=== PATIENT | male | born 1985 | race Caucasian/White ===

== ENCOUNTER 2019-06-05 11:50 | Emergency (ER) | payer MEDICAID ==
[~2019-06-05] VITALS: Ht 180.3 cm; Wt 87.0 kg
[2019-06-05 11:58] VITALS: BP 131/83
[2019-06-05] MEDS ORDERED: LORazepam 1 MG tablet PO ONE (12:40)
[2019-06-05] MEDS ORDERED: SERT100T PO (12:42)
[2019-06-05] MEDS ORDERED: GABA-534 PO (12:42)
== END 2019-06-05 12:50 | disposition home or self-care (01) ==
LOC: ER 11:51
DX: F41.9 Anxiety disorder, unspecified (principal); F32.9 Major depressive disorder, single episode, unspecified; Z88.0 Allergy status to penicillin; Z79.2 Long term (current) use of antibiotics; Z79.899 Other long term (current) drug therapy
CPT/HCPCS: 99283

== ENCOUNTER 2019-07-11 13:15 | Emergency (ER) | payer MEDICAID ==
[~2019-07-11] VITALS: Ht 180.3 cm; Wt 84.1 kg
[~2019-07-11 13:15] MED LIST: GABA-534 PO; SERT100T PO
[2019-07-11 13:31] VITALS: BP 130/77
[2019-07-11] MEDS ORDERED: LORazepam 1 MG tablet PO ONE (15:30)
[2019-07-11] MEDS ORDERED: SERT100T PO (15:35)
[2019-07-11] MEDS ORDERED: GABA-534 PO (15:35)
== END 2019-07-11 15:47 | disposition home or self-care (01) ==
LOC: ER 13:16
DX: F32.9 Major depressive disorder, single episode, unspecified (principal); Z56.0 Unemployment, unspecified; Z88.0 Allergy status to penicillin; Z88.8 Allergy status to other drugs, medicaments and biological substances; Z79.899 Other long term (current) drug therapy
CPT/HCPCS: 99283

== ENCOUNTER 2020-04-29 22:35 | Emergency (ER) | payer MEDICAID ==
[~2020-04-29] VITALS: Ht 180.3 cm; Wt 62.7 kg
--- NOTE | 2020-04-29 22:44 | NUR ---
Called pt for triage. Pt is currently in the restroom "cleaning up."
[2020-04-29 22:46] VITALS: BP 127/96
[2020-04-29] MEDS ORDERED: CEPH250T PO (23:34)
[2020-04-29] MEDS ORDERED: BACDS PO (23:34)
== END 2020-04-29 23:56 | disposition home or self-care (01) ==
LOC: ER 22:37
DX: L02.416 Cutaneous abscess of left lower limb (principal); F32.9 Major depressive disorder, single episode, unspecified; Z56.0 Unemployment, unspecified; Z59.0 Homelessness; Z88.1 Allergy status to other antibiotic agents; Z88.8 Allergy status to other drugs, medicaments and biological substances; Z79.2 Long term (current) use of antibiotics; Z79.899 Other long term (current) drug therapy
CPT/HCPCS: 99283

== ENCOUNTER 2020-06-06 03:17 | Emergency (ER) | payer MEDICAID ==
[~2020-06-06] VITALS: Ht 180.3 cm; Wt 67.4 kg
[2020-06-06] MEDS ORDERED: vancomycin/NS 1 GM ADD-VANTAGE 250 ML IV ONE (03:25)
[2020-06-06] MEDS ORDERED: iohexol 300mg/ml 100ml inj. ONE (03:25)
[2020-06-06] MEDS ORDERED: normal saline 1000ML IV soln IV ONE (03:25)
[2020-06-06] MEDS ORDERED: bacitracin 15gm ointment TP ONE (03:40)
[2020-06-06 03:52] LABS: BASOPHILS # (AUTO) 0.1 X10'3 (0-0.2); BASOPHILS % (AUTO) 0.7 % (0-1); EOSINOPHILS # (AUTO) 0.1 X10'3 (0-0.9); EOSINOPHILS % (AUTO) 0.4 % (0-6); LYMPHOCYTES # (AUTO) 1.8 X10'3 (1.1-4.8); LYMPHOCYTES % (AUTO) 13.9 % (21-51); MEAN CORPUSCULAR HEMOGLOBIN 28.2 PG (27.0-31.0); MEAN CORPUSCULAR HGB CONC 32.5 g/dL (33.0-36.5); MEAN PLATELET VOLUME 8.5 FL (7.4-10.4); MONOCYTES # (AUTO) 1.5 X10'3 (0-0.9); MONOCYTES % (AUTO) 11.5 % (2-12); NEUTROPHILS # (AUTO) 9.4 X10'3 (1.8-7.7); NEUTROPHILS % (AUTO) 73.5 % (42-75); PLATELET COUNT 321 X10'3 (140-440); RED CELL DISTRIBUTION WIDTH 14.1 % (11.5-14.5); WHITE BLOOD COUNT 12.8 X10'3 (4.5-11.0)
[2020-06-06 04:07] LABS: ALANINE AMINOTRANSFERASE 68 U/L (12-78); ALBUMIN 3.7 G/DL (3.4-5.0); ALBUMIN/GLOBULIN RATIO 0.8 (1.1-1.5); ALKALINE PHOSPHATASE 168 IU/L (46-116); ANION GAP 7 (8-16); ASPARTATE AMINO TRANSFERASE 44 U/L (10-37); BILIRUBIN,TOTAL 0.8 MG/DL (0.1-1.0); BLOOD UREA NITROGEN 20 MG/DL (7-18); BUN/CREATININE RATIO 22.5 (5.4-32.0); CALCIUM 9.2 MG/DL (8.5-10.1); CHLORIDE 99 MMOL/L (99-107); CREATININE 0.89 MG/DL (0.60-1.10); ETHANOL < 0.010 GM/DL (0.0-0.010); GLUCOSE 123 MG/DL (70-104); POTASSIUM 4.1 MMOL/L (3.5-5.1); SODIUM 135 MMOL/L (135-145); TOTAL CARBON DIOXIDE 28.9 MMOL/L (24-32); TOTAL PROTEIN 8.6 G/DL (6.4-8.2); eGFR > 90 ML/MIN
--- NOTE | 2020-06-06 04:35 | NUR ---
Patient is sobbing and hiding his face. Patient unable to urinate at this time after two attempts
--- NOTE | 2020-06-06 05:41 | NUR ---
PT REPORTS SEVERE ANXIETY. DR. LOZADA AWARE. VERBAL RECEIVED FOR ATIVAN 1 MG IV X1 NOS. PT IS ACCEPTED FOR TRANSFER AT [facility]. COVID SWAB JUST COLLECTED.
--- NOTE | 2020-06-06 05:44 | NUR ---
Patient continues to be unable to urinate
[2020-06-06] MEDS ORDERED: LORazepam 2 mg/ml vial ONE ×2 (05:52→05:55)
[2020-06-06] MEDS: LORazepam 2 mg/ml vial IV ONE ×2 (06:01→06:05)
--- NOTE | 2020-06-06 06:45 | NUR ---
[facility] contacted for transport, no ETA available will return call when they are able to provide ETA.
--- NOTE | 2020-06-06 07:08 | NUR ---
pt sleeping. in no distress. waiting on an ETA for transport. has room assignment
--- NOTE | 2020-06-06 08:40 | NUR ---
[facility] contacted again regarding ETA for transport, still none available.
--- NOTE | 2020-06-06 10:55 | NUR ---
pt up to bathroom.
--- NOTE | 2020-06-06 11:15 | NUR ---
pt still in bathroom. checked on him and he said he is almost done.
--- NOTE | 2020-06-06 12:31 | NUR ---
PT RESTING ON GURNEY AGAIN. IN NO OBVIOUS DISTRESS
--- NOTE | 2020-06-06 12:53 | NUR ---
[facility] contacted @[phone] and [phone] looking for ETA
--- NOTE | 2020-06-06 14:59 | NUR ---
contacted [facility] in regards to pt being transported @[id number] still no ETA, [facility] will call when ETA is available
[2020-06-06] MEDS ORDERED: clindamycin 300mg/D5W 50mL 50 ML IV SCH (17:25)
[2020-06-06] MEDS ORDERED: LORazepam 2 mg/ml vial IV ONE (17:45)
--- NOTE | 2020-06-06 17:57 | NUR ---
CONTACTED [facility] @[phone] WAITING ETA
[2020-06-06] MEDS: ringers solution, lacted 1,000 ML IV SCH ×2 (18:01→18:29)
[2020-06-06] MEDS ORDERED: NO HOME MEDS (18:05)
[2020-06-06] MEDS ORDERED: cloNIDine 0.1 mg tablet PO ONE (18:10)
--- NOTE | 2020-06-06 18:58 | NUR ---
Spoke with patients brother in law, Flynn . He states he will be here to pickling machine operator the patient in approximately 10 minutes.
--- NOTE | 2020-06-06 19:10 | NUR ---
TALKED TO PATIENT'S SISTER TO ARRANGE POV TRANSPORT AFTER PATIENT'S AMA. EMS IS OVERWHELMED AN UNBALE TO TRANSPORT PATIENT TO [facility]. REPORT IS GIVEN TO [facility] AND PATIENT UNDERSTAND TO PRESENT TO ED CHECKIN THEN TRANSPORT TO [facility] FLOOR FOR ENT CONSULT.
--- NOTE | 2020-06-06 19:12 | NUR ---
DR. QUINTEROS , CHARGE NURSE LEW, PRIMARY NURSE AND PATIENT ALL AGREE THAT AMA/POV IS THE PATIENT'S BEST ROUTE TO EXPEDIANT PROPER CARE FOR THE PATIENT.
[2020-06-06 19:33] VITALS: BP 140/86
== END 2020-06-06 19:36 | disposition short-term general hospital (02) ==
LOC: ER 03:18
DX: S00.81XA Abrasion of other part of head, initial encounter (principal); Z20.828 Contact with and (suspected) exposure to other viral communicable diseases; L02.11 Cutaneous abscess of neck; L03.211 Cellulitis of face; D64.9 Anemia, unspecified; Z59.0 Homelessness; Z56.0 Unemployment, unspecified; Z88.1 Allergy status to other antibiotic agents; Z88.6 Allergy status to analgesic agent; Z79.899 Other long term (current) drug therapy; X58.XXXA Exposure to other specified factors, initial encounter; Y93.89 Activity, other specified; Y92.89 Other specified places as the place of occurrence of the external cause; Y99.9 Unspecified external cause status
CPT/HCPCS: 36415; 70487; 70491; 80053; 80320; 83605; 83735; 84145; 85025; 87040; 87635; 96365; 96366; 96367; 96375; 96376; 99285; C9803; J2060; J3370; J7030; Q9967; J3490; J7120

== ENCOUNTER 2021-03-01 21:33 | Emergency (ER) | payer MEDICAID ==
[~2021-03-01] VITALS: Ht 180.3 cm; Wt 65.0 kg
[~2021-03-01 21:33] MED LIST changes: -GABA-534 PO; +NO HOME MEDS; -SERT100T PO
[2021-03-01] MEDS ORDERED: normal saline 1000ml 1,000 ML IV ONE (22:05)
[2021-03-01] MEDS ORDERED: ondansetron/PF 4mg/2ml inj IV ONE (22:05)
--- NOTE | 2021-03-01 23:06 | NUR ---
Pt sleepy , but awakens easily to voice. vss. requesting food. provided a sack lunch.
--- NOTE | 2021-03-02 00:07 | NUR ---
pt continues to sleep, does awaken easily to voice, but falls back to sleep. RR 10.
[2021-03-02 01:05] VITALS: BP 113/77
[2021-03-02] MEDS ORDERED: NALO4SPR BOTHNARES (01:57)
== END 2021-03-02 03:30 | disposition home or self-care (01) ==
LOC: ER 21:34
DX: T40.411A Poisoning by fentanyl or fentanyl analogs, accidental (unintentional), initial encounter (principal); R07.89 Other chest pain; F32.9 Major depressive disorder, single episode, unspecified; Z72.89 Other problems related to lifestyle; Z56.0 Unemployment, unspecified; Z59.0 Homelessness; Z88.1 Allergy status to other antibiotic agents; Z88.8 Allergy status to other drugs, medicaments and biological substances; Z79.899 Other long term (current) drug therapy; Y92.89 Other specified places as the place of occurrence of the external cause
CPT/HCPCS: 93005; 96361; 96374; 99285; J2405; J7030

== ENCOUNTER 2021-04-16 23:37 | Emergency (ER) | payer MEDICAID ==
[~2021-04-16] VITALS: Ht 180.3 cm; Wt 68.2 kg
[~2021-04-16 23:37] MED LIST changes: +NALO4SPR BOTHNARES
[2021-04-17 02:18] VITALS: BP 133/71
== END 2021-04-17 02:20 | disposition home or self-care (01) ==
LOC: ER 23:37
DX: T40.411A Poisoning by fentanyl or fentanyl analogs, accidental (unintentional), initial encounter (principal); R40.4 Transient alteration of awareness; Z56.0 Unemployment, unspecified; Z59.0 Homelessness; Z88.1 Allergy status to other antibiotic agents; Z88.8 Allergy status to other drugs, medicaments and biological substances; Z79.899 Other long term (current) drug therapy; Y92.89 Other specified places as the place of occurrence of the external cause
CPT/HCPCS: 99283

== ENCOUNTER 2021-07-08 00:40 | Emergency (ER) | payer MEDICAID ==
[~2021-07-08] VITALS: Ht 180.3 cm; Wt 68.2 kg
[2021-07-08] MEDS ORDERED: DOXYCYCLINE 100MG CAPSULE PO STA (05:29)
[2021-07-08] MEDS ORDERED: DOXY-411 PO (05:30)
[2021-07-08 05:51] VITALS: BP 126/70
== END 2021-07-08 05:55 | disposition home or self-care (01) ==
LOC: ER 00:40
DX: L03.115 Cellulitis of right lower limb (principal); F15.10 Other stimulant abuse, uncomplicated; F32.9 Major depressive disorder, single episode, unspecified; F17.210 Nicotine dependence, cigarettes, uncomplicated; Z59.00 Homelessness unspecified; Z56.0 Unemployment, unspecified; Z88.0 Allergy status to penicillin; Z88.8 Allergy status to other drugs, medicaments and biological substances
CPT/HCPCS: 99283

== ENCOUNTER 2021-07-30 21:16 | Emergency (ER) | payer MEDICAID ==
[~2021-07-30] VITALS: Ht 182.9 cm; Wt 79.5 kg
[2021-07-30] MEDS ORDERED: SULF1TAB45 PO (21:31)
[2021-07-30] MEDS ORDERED: NALO4SPR BOTHNARES ×2 (21:31→21:32)
[2021-07-30] MEDS ORDERED: DOXY100C43 PO (21:33)
[2021-07-30 23:15] VITALS: BP 134/90
== END 2021-07-30 23:21 | disposition home or self-care (01) ==
LOC: ER 21:16
DX: T43.621A Poisoning by amphetamines, accidental (unintentional), initial encounter (principal); T40.1X1A Poisoning by heroin, accidental (unintentional), initial encounter; F32.9 Major depressive disorder, single episode, unspecified; F15.90 Other stimulant use, unspecified, uncomplicated; F11.90 Opioid use, unspecified, uncomplicated; Z56.0 Unemployment, unspecified; Z59.00 Homelessness unspecified; Z88.1 Allergy status to other antibiotic agents; Z88.8 Allergy status to other drugs, medicaments and biological substances; Z79.2 Long term (current) use of antibiotics; Z79.899 Other long term (current) drug therapy; Y92.89 Other specified places as the place of occurrence of the external cause
CPT/HCPCS: 99283

== ENCOUNTER 2021-09-11 18:35 | Emergency (ER) | payer MEDICAID ==
[~2021-09-11] VITALS: Ht 180.3 cm; Wt 68.2 kg
[2021-09-11 19:01] VITALS: BP 147/96
[2021-09-12] MEDS ORDERED: CLIN150C2 PO (06:18)
[2021-09-12] MEDS ORDERED: NEOM28.44 TP (06:18)
== END 2021-09-11 22:46 | disposition left against medical advice (07) ==
LOC: ER 18:36
DX: M79.601 Pain in right arm (principal); M79.602 Pain in left arm; Z53.21 Procedure and treatment not carried out due to patient leaving prior to being seen by health care provider

== ENCOUNTER 2021-09-12 04:52 | Emergency (ER) | payer MEDICAID ==
[~2021-09-12] VITALS: Ht 180.3 cm; Wt 68.2 kg
[2021-09-12 05:15] VITALS: BP 130/87
--- NOTE | 2021-09-12 05:21 | NUR ---
PT HAS NUMEROUS WOUNDS SCATTERED ACROSS HIS ENTIRE BODY. PT STATES THAT WOUND DO NOT ORIGINATE FROM WHERE HE INJECTS HIS IV METH AND HEROINE. MULTIPLE WOUNDS APPEAR INFLAMMED AND INFECTED. PT REPORTS THAT HE HAS BEEN SEEN FOR THESE PRIOR AND THAT HIS SCRIPTS FOR HIS MEDICATIONS GET STOLEN AND THAT IS WHY HE IS NON-COMPLIANT WITH HIS TREATMENT PLANS.
[2021-09-12] MEDS ORDERED: NEOM28.44 TP (06:18)
[2021-09-12] MEDS ORDERED: CLIN150C2 PO (06:18)
== END 2021-09-12 06:49 | disposition home or self-care (01) ==
LOC: ER 04:53
DX: S80.921A Unspecified superficial injury of right lower leg, initial encounter (principal); F32.9 Major depressive disorder, single episode, unspecified; F17.200 Nicotine dependence, unspecified, uncomplicated; F15.90 Other stimulant use, unspecified, uncomplicated; F11.90 Opioid use, unspecified, uncomplicated; Z56.0 Unemployment, unspecified; Z59.00 Homelessness unspecified; Z88.1 Allergy status to other antibiotic agents; Z88.8 Allergy status to other drugs, medicaments and biological substances; Z79.2 Long term (current) use of antibiotics; X58.XXXA Exposure to other specified factors, initial encounter; Y93.89 Activity, other specified; Y92.89 Other specified places as the place of occurrence of the external cause; Y99.8 Other external cause status
CPT/HCPCS: 99283